=== PATIENT | male | born 1985 ===

== ENCOUNTER 2020-05-20 08:39 | Emergency (ER) | payer MEDICAID ==
[~2020-05-20] VITALS: Ht 190.5 cm; Wt 75.0 kg
[2020-05-20 08:44] VITALS: BP 140/82
== END 2020-05-20 13:20 | disposition left against medical advice (07) ==
LOC: ER 08:39
DX: R10.84 Generalized abdominal pain (principal); Z53.21 Procedure and treatment not carried out due to patient leaving prior to being seen by health care provider